=== PATIENT | male | born 1975 | race Caucasian/White ===

== ENCOUNTER 2019-06-23 04:31 | Emergency (ER) | payer MEDICARE ==
[~2019-06-23] VITALS: Ht 180.3 cm; Wt 81.8 kg
[2019-06-23 04:40] VITALS: BP 147/105; Ht 180.3 cm; Wt 81.8 kg
[2019-06-23] MEDS ORDERED: DILANTIN100 MG PO (05:03)
[2019-06-23] MEDS ORDERED: LISINOPRIL20 MG PO (05:03)
== END 2019-06-23 05:20 | disposition home or self-care (01) ==
LOC: D.ER 04:31
DX: S01.91XA Laceration without foreign body of unspecified part of head, initial encounter (principal); I10 Essential (primary) hypertension; Z72.0 Tobacco use; G40.909 Epilepsy, unspecified, not intractable, without status epilepticus; X58.XXXA Exposure to other specified factors, initial encounter; R51 Headache; Z59.0 Homelessness

== ENCOUNTER 2019-09-03 11:50 | Emergency (ER) | payer MEDICARE ==
[~2019-09-03] VITALS: Ht 180.3 cm; Wt 82.3 kg
[~2019-09-03 11:50] MED LIST: DILANTIN100 MG PO; LISINOPRIL20 MG PO
[2019-09-03 11:57] VITALS: Ht 180.3 cm; Wt 82.3 kg
[2019-09-03 12:17] VITALS: BP 150/96
== END 2019-09-03 12:19 | disposition home or self-care (01) ==
LOC: D.ER 11:50
DX: R56.9 Unspecified convulsions (principal); R51 Headache

== ENCOUNTER 2020-01-25 07:10 | Emergency (ER) | payer MEDICARE ==
[~2020-01-25] VITALS: Ht 180.3 cm; Wt 79.5 kg
[2020-01-25 07:12] VITALS: Ht 180.3 cm; Wt 79.5 kg
[2020-01-25] MEDS ORDERED: DILANTIN100 MG (07:32)
[2020-01-25 07:43] LABS: BASOPHILS 0.3 % (0-2); EOSINOPHILS 1.8 % (0-7); HEMATOCRIT 47.5 % (42.0-54.0); IMMATURE GRANULOCYTES 0.3 % (0-5); LYMPHOCYTES 18.7 % (15-50); MCH 30.6 pg (26.0-34.0); MCHC 33.7 g/dL (31.0-37.0); MCV 90.8 fL (80.0-100.0); MEAN PLATELET VOLUME 10.5 fL (7.4-10.4); MONOCYTES 7.8 % (2-11); NEUTROPHILS 71.1 % (40-80); PLATELET COUNT 238 10x3/uL (130-400); RBC 5.23 10x6/uL (4.20-6.10); RDW 13.6 % (11.5-14.5); WBC 9.7 10x3/uL (4.8-10.8)
[2020-01-25 07:48] LABS: CARBON DIOXIDE 27.2 mmol/L (21.0-32.0); CREATININE - SERUM 1.2 mg/dL (0.6-1.3); POTASSIUM - SERUM 4.2 mmol/L (3.5-5.1)
[2020-01-25 07:54] LABS: ALBUMIN 3.6 g/dL (3.4-5.0); BILIRUBIN - TOTAL 0.52 mg/dL (0.2-1.3); MAGNESIUM - SERUM 2.3 mg/dL (1.8-2.4); PHENYTOIN (DILANTIN) 1.7 ug/mL (10.0-20.0); PROTEIN - SERUM 7.6 g/dL (6.4-8.2)
[2020-01-25] MEDS ORDERED: DILANTIN100 MG PO (08:58)
[2020-01-25 08:59] LABS: UDS - AMPHET POSITIVE QUAL (NEGATIVE); UDS - BARB NEGATIVE QUAL (NEGATIVE); UDS - BENZO NEGATIVE QUAL (NEGATIVE); UDS - COCAINE NEGATIVE QUAL (NEGATIVE); UDS - OPIATE NEGATIVE QUAL (NEGATIVE); UDS - PCP NEGATIVE QUAL (NEGATIVE); UDS - THC POSITIVE QUAL (NEGATIVE)
[2020-01-25 10:27] VITALS: BP 137/94
== END 2020-01-25 10:29 | disposition home or self-care (01) ==
LOC: D.ER 07:10
PROVIDERS: Emergency Medicine
DX: G40.409 Other generalized epilepsy and epileptic syndromes, not intractable, without status epilepticus (principal); F15.10 Other stimulant abuse, uncomplicated; I10 Essential (primary) hypertension; J45.909 Unspecified asthma, uncomplicated

== ENCOUNTER 2020-08-22 22:02 | Emergency (ER) | payer MEDICARE ==
[~2020-08-22] VITALS: Ht 180.3 cm; Wt 77.3 kg
[~2020-08-22 22:02] MED LIST changes: +DILANTIN100 MG
[2020-08-22 22:03] VITALS: Ht 180.3 cm; Wt 77.3 kg
[2020-08-22 22:36] LABS: BASOPHILS 0.7 % (0-2); EOSINOPHILS 2.4 % (0-7); HEMATOCRIT 41.5 % (42.0-54.0); HEMOGLOBIN 14.3 g/dL (13.5-17.5); IMMATURE GRANULOCYTES 0.2 % (0-5); LYMPHOCYTE ABS# 1.45 10x3/uL (1.32-3.57); LYMPHOCYTES 32.2 % (15-50); MCH 29.9 pg (26.0-34.0); MCHC 34.5 g/dL (31.0-37.0); MCV 86.6 fL (80.0-100.0); MEAN PLATELET VOLUME 12.3 fL (7.4-10.4); MONOCYTES 18.6 % (2-11); NEUTROPHIL ABS# 2.07 10x3/uL (1.78-5.38); NEUTROPHILS 45.9 % (40-80); PLATELET COUNT 249 10x3/uL (130-400); RBC 4.79 10x6/uL (4.20-6.10); RDW 13.9 % (11.5-14.5); WBC 4.5 10x3/uL (4.8-10.8)
[2020-08-22 22:41] LABS: BILIRUBIN 3+ (NEGATIVE); KETONE NEGATIVE (NEGATIVE); NITRITE NEGATIVE (NEGATIVE); UROBILINOGEN NORMAL mg/dL (< 2)
[2020-08-22 22:45] LABS: INR 1.15 (0.85-1.17); PROTIME 13.7 SECONDS (11.6-15.0)
[2020-08-22 22:46] LABS: BACTERIA FEW HPF (NONE SEEN); SQUAMOUS EPITHELIAL NONE SEEN HPF (0-4); WHITE CELLS - URINE 0-5 HPF (0-1)
[2020-08-22 22:59] LABS: UDS - AMPHET POSITIVE QUAL (NEGATIVE); UDS - BARB NEGATIVE QUAL (NEGATIVE); UDS - BENZO POSITIVE QUAL (NEGATIVE); UDS - COCAINE NEGATIVE QUAL (NEGATIVE); UDS - OPIATE NEGATIVE QUAL (NEGATIVE); UDS - PCP NEGATIVE QUAL (NEGATIVE); UDS - THC POSITIVE QUAL (NEGATIVE)
[2020-08-22 23:06] LABS: ALBUMIN 2.3 g/dL (3.4-5.0); ALKALINE PHOSPHATASE 328 U/L (30-120); BILIRUBIN - TOTAL 13.14 mg/dL (0.2-1.3); CALC OSMOLALITY 272 mosm/kg (275-300); CALCIUM 8.5 mg/dL (8.5-10.1); CARBON DIOXIDE 29.9 mmol/L (21.0-32.0); CHLORIDE - SERUM 103 mmol/L (98-107); CREATINE KINASE 166 UL (21-232); CREATININE - SERUM 0.9 mg/dL (0.6-1.3); GLUCOSE 54 mg/dL (74-106); LIPASE 133 U/L (73-393); MAGNESIUM - SERUM 1.9 mg/dL (1.8-2.4); POTASSIUM - SERUM 5.1 mmol/L (3.5-5.1); PRO BNP 25 pg/mL (0-125); PROTEIN - SERUM 6.6 g/dL (6.4-8.2); SODIUM 138 mmol/L (136-145); UREA NITROGEN 11 mg/dL (7-18); eGFR NON AFRICAN AMERICAN > 90 mL/min (90-120)
[2020-08-22 23:07] LABS: ALT (SGPT) 1285 U/L (10-68)
[2020-08-23 00:07] VITALS: BP 137/97
== END 2020-08-23 00:08 | disposition home or self-care (01) ==
LOC: D.ER 22:02
PROVIDERS: Family Medicine
DX: R17 Unspecified jaundice (principal); B17.9 Acute viral hepatitis, unspecified; I10 Essential (primary) hypertension; J45.909 Unspecified asthma, uncomplicated; K21.9 Gastro-esophageal reflux disease without esophagitis; R10.9 Unspecified abdominal pain